=== PATIENT | female | born 1965 | race Caucasian/White ===

== ENCOUNTER 2023-11-30 06:10 | Emergency (ER) | payer BC, SELFPAY ==
[2023-11-30 06:16] VITALS: BP 141/84
[2023-11-30 08:02] LABS: % Basophils 0.6 % (0-2); % Eosinophils 1.7 % (0-6); % Immature Granulocytes 0.2 % (0-0.5); % Lymphocytes 27.5 % (20.5-51.1); % Monocytes 6.1 % (1.7-9.3); % Neutrophils 63.9 % (42.2-75.2); Absolute Basophils 0.1 10^3/uL (0-0.2); Absolute Eosinophils 0.2 10^3/uL (0-0.7); Absolute Lymphocytes 2.6 10^3/uL (1.2-3.4); Absolute Monocytes 0.6 10^3/uL (0.1-0.6); Absolute Neutrophils 5.9 10^3/uL (1.4-6.5); Hematocrit 40.5 % (37.0-47.0); Hemoglobin 13.3 g/dL (12.0-16.0); Mean Corp Hgb Conc. 32.8 g/dL (33.0-37.0); Mean Corpuscular Hgb 29.1 pg (27.0-31.0); Mean Corpuscular Volume 88.6 fL (81.0-99.0); Mean Platelet Volume 9.6 fL (7.4-10.4); Nucleated Red Blood Cells % 0 %; Platelet Count 264 10^3/uL (130-400); Red Blood Cell Count 4.57 10^6/uL (4.20-5.40); White Blood Cell Count 9.3 10^3/uL (4.8-10.8)
[2023-11-30 08:10] LABS: ALT (SGPT) 26 U/L (0-35); AST (SGOT) 25 U/L (14-36); Albumin 4.9 g/dl (3.5-5.0); Alkaline Phosphatase 100 U/L (38-126); Blood Urea Nitrogen 19 mg/dl (7-17); Calcium 10.5 mg/dl (8.4-10.2); Carbon Dioxide 26 mmol/L (22-30); Chloride 103 mmol/L (98-107); Glucose 89 mg/dl (70-99); Potassium 4.5 mmol/L (3.5-5.1); Sodium 139 mmol/L (135-145); Total Bilirubin 0.5 mg/dl (0.2-1.3); eGFR > 60.00
[2023-11-30 08:21] VITALS: BP 135/89
[2023-11-30 08:21] LABS: Troponin I < 0.012 ng/ml
--- NOTE | 2023-11-30 08:22 | ED.GENMED ---
History of Present Illness
General
Chief Complaint: Chest Pain
Source: patient
Exam Limitations: none
Time Seen by Provider: 11/30/23 08:10
Nursing documentation reviewed up to this point in time: agreed with
Travel History
Have you had any contact with someone who has COVID-19?: No
Do you have any symptoms of coronavirus? Fever > 100 degrees, chills, cough, shortness of breath, sore throat, loss of taste or smell, muscle aches, or headache?: No
History of Present Illness
History of Present Illness:
Patient is a 58 yr old female with past medical history of hypertension, not on insulin diabetes, high cholesterol, pericarditis presents to the ER for evaluation. Patient started with pain to left back radiating to chest and left arm. She
reports she woke up around 4:20 AM and while getting dressed for work she noticed the symptoms. She denies any associated shortness of breath nausea vomiting diaphoresis. Here in the ER she does feel the pain is slightly increased when she lays
back and she does feel slight pain when she takes deep breath.
she denies any recent injury. She denies any lower extremity swelling. She takes pain medication for her hip and did take pain medication today which did seem to improve symptoms. She also tried Maalox.
She is followed by Dr. Jacobs here at [place] for pericarditis. She reports she had a normal echo in April.
Past History
Past History
ED Past Medical History: HTN, Hypercholesterolemia and NIDDM
ED Past Surgical History: Cholecystectomy
Social History
Tobacco: Former smoker
Alcohol: Occasional
Personal:
Living: with family
Review of Systems
Review of Systems
Allergies reviewed?: Yes
All Other Systems: ROS reviewed and negative except as documented in HPI and ROS
Constitutional: Reports no symptoms; Denies fever, fatigue or chills
Respiratory: Reports other (denies SOB , slight increased pain with deep breath)
Cardiac: Reports chest pain; Denies diaphoresis, palpitations or syncope
ABD/GI: Reports no symptoms
Musculoskeletal: Reports no symptoms
Phy Exam
General Physical Exam
General Presentation: no apparent distress
General age: appears stated age
General Skin: warm and dry
General Hydration: appears well hydrated
Cardiovascular Exam
Cardiovascular Exam: regular rate/rhythm, no murmur and normal peripheral pulses
Pulmonary Exam
Pulmonary Exam: lungs clear and no respiratory distress
Neurological Exam
Neurological Exam: alert and oriented x3
Musculoskeletal Exam
Musculoskeletal Exam: full ROM
Skin Exam
Skin Exam: normal color and warm/dry
Psychiatric Exam
Psychiatric Exam: normal mood/affect
Scores
Heart Score for Chest Pain Patients
STEMI patient?: Not applicable
Course
Orders/Labs/Results
Orders:
Orders
11/30/23 06:12
Electrocardiogram (*1) Urgent
Reason for Study: Chest Pain
Cardiac Monitoring- Treatment ONCE
EKG- Treatment ONCE
IV Insert/Care/Rem.- Treatment PRN
O2 Therapy [RESP] Urgent
Titrate/Wean O2 to maintain O2 sat greater than (%): 90
Special Instructions: Maintain sats >/=90%
Pulse Ox/spot Check [RESP] Urgent
Quantity: 1
Special Instructions: ON ROOM AIR
11/30/23 07:36
Complete Blood Count/With Diff Urgent
Comprehensive Metabolic Panel Urgent
Troponin I Urgent
11/30/23 08:36
DDimer [D-Dimer] Urgent
11/30/23 08:51
Ketorolac [Toradol] 15 mg IV NOW STA
11/30/23 09:12
Chest [CR Chest - 2 Views ] Urgent
Comment:
Reason For Exam: chest pain
11/30/23 10:14
Troponin I Urgent
11/30/23 11:00
Electrocardiogram (*1) Stat
Reason for Study: Other
Other Reason for Exam: chest pain
EKG- Treatment ONCE
Abnormal Lab Results
11/30/23
07:36
MCHC 32.8 L g/dL
(33.0-37.0)
BUN 19 H mg/dl
(7-17)
Calcium 10.5 H mg/dl
(8.4-10.2)
11/30/23 07:36
11/30/23 07:36
Vital Signs
Initial and Last Documented VS:
Initial Vital Signs
Temp Pulse Resp BP Pulse Ox
97.8 F 82 17 141/84 97
11/30/23 06:16 11/30/23 06:16 11/30/23 06:16 11/30/23 06:16 11/30/23 06:16
Last Documented Vital Signs
Temp Pulse Resp BP Pulse Ox
97.8 F 83 17 135/82 94
11/30/23 06:16 11/30/23 10:30 11/30/23 10:30 11/30/23 10:02 11/30/23 10:30
Estimator Paperboard Boxes consulted with Physician
Estimator Paperboard Boxes consulted with physician?: Yes
Name of Physician Consulted: walker
MDM/Problems Addressed
Differential Diagnosis Includes:
Not limited to unstable angina PE less likely
,
MDM/Problems Addressed:
Patient is a 58-year-old female past medical history of hypertension reflux [id number] diabetes pericarditis who presents to the ER for evaluation of left-sided back pain which radiates to her chest and arm around 430 this morning. She
noticed this while wakening. She denies any exact injury but after arriving here to the ER she reports pain seems to be worse with movement laying back and simply moving changing positions. Sh is followed by cardiology Dr. Jacobs. I reviewed
her echo from 10/2020: Which shows normal LV wall size and systolic function no regional wall abnormalities left ventricular ejection fraction 55 to 60% normal diastolic function normal pericardium with trivial effusion. She presents awake alert
no acute distress lungs are clear heart rate normal heart rate 80 normal sinus rhythm no murmurs no fevers normal white count.
Patient is well-appearing nontachycardic nonhypoxic in no acute distress given IV Toradol with some relief of symptoms. She is afebrile here with a normal white count 2 negative cardiac troponins and negative D-dimer and no acute findings on chest
x-ray possible muscular. Patient stable for discharge home with outpatient follow up . Will place on hotline
*Radiology
Radiology exam reviewed: radiology read reviewed
*Pulse Oximetry
Patient hypoxic: yes
*EKG
Interpreted by ED Provider?: Yes
Interpretation: normal
Heart Rate: 80
Rate: normal
Rhythm: sinus
Ischemia: other (Repeat EKG also with a heart rate of 80 unchanged at 11:03 am )
*Critical Care Note
Total Time (30-74mins, 75-104mins- exclusive of procedures): Not Applicable
Data Reviewed
Review of Other/Old Records Reveals: Other ( echo reviewed from 2020 )
Source: patient
ED Attending Note
-
Portions of this chart may have been created with voice recognition software.� Occasional wrong word or��sound alike� substitutions may have occurred due to the inherent limitations of voice recognition software.
Discharge Plan
Departure
Patient Disposition: Home (Routine Discharge)
Date of Disposition: 11/30/23
Time of Disposition: 11:01
Patient with high blood pressure during this ER visit?: Yes
Covid-19: Not Applicable
Discharge Problem:
Chest pain
Instructions: Chest Pain CBC Follow Up, BLOOD PRESSURE
Prescriptions:
No Action
atorvastatin 40 MG tablet
40 mg PO DAILY
amlodipine 5 MG tablet
5 mg PO DAILY
Patient Comments:
just restarted today 06/16/16
pantoprazole [Protonix] 20 MG tablet,delayed release (DR/EC)
20 mg PO DAILY
ibuprofen 600 MG tablet
600 mg PO Q6HPRN PRN (Reason: pain)
diltiazem HCl 180 MG capsule,extended release 24hr
180 mg PO DAILY Qty: 90 0RF
rosuvastatin [Crestor] 10 mg Tablet
15 mg PO DAILY
Mounjaro 10 mg/0.5 mL Pen Injector
10 mg SC QWEEK
naproxen 500 MG tablet
500 mg PO TID PRN (Reason: pain)
Referrals:
Kenn Jacobs MD [Active] -
Misty Santos MD [Family Provider] -
Activity Restrictions/Additional Instructions:
Follow-up with cardiology as discussed you are placed on the hotline which means you should receive a call from the office in the next 1 days have you do not please give them a call to schedule an appointment return if any worsening of symptoms.
Interventions
Interventions:
*Risk Screen - Suicide Last Done: 11/30/23 06:16
*General Assessment Last Done: 11/30/23 06:16
*Neglect/Abuse Screening Last Done: 11/30/23 06:16
ED- Fall Risk Assessment Last Done: 11/30/23 09:26
*ED COVID-19 Vaccine History Last Done: 11/30/23 06:16
ED- Cardiac Assessment Last Done: 11/30/23 09:26
Discharge Date and Time
Print Language: GEORGIAN
[2023-11-30 08:56] LABS: D-Dimer 0.38 ug/mlFEU (0.00-0.50)
[2023-11-30] MEDS: TORADOL 15 MG IV (09:08)
[2023-11-30 09:25] VITALS: BP 128/87
[2023-11-30 10:02] VITALS: BP 135/82
[2023-11-30 10:48] LABS: Troponin I < 0.012 ng/ml
[2023-11-30 11:00] VITALS: BP 126/87
== END 2023-11-30 11:24 | disposition home or self-care (01) ==
LOC: EMR 06:10
PROVIDERS: Nurse Practitioner; EMERGENCY PHYSICIAN Emergency Medicine; FAMILY PHYSICIAN Family Medicine
DX: R07.9 Chest pain, unspecified (principal); M79.602 Pain in left arm; I10 Essential (primary) hypertension; E11.9 Type 2 diabetes mellitus without complications; Z87.891 Personal history of nicotine dependence
CPT/HCPCS: 99285; 96374; 71046; 80053; 84484; 85025; 85379; 93005

== ENCOUNTER → 2024-03-23 14:24 | Outpatient (REF) | payer BC, SELFPAY | LOC: RAD 14:24 | PROVIDERS: ATTENDING PHYSICIAN Nurse Practitioner Family; FAMILY PHYSICIAN Family Medicine | DX: Z91.81 History of falling (principal); R07.81 Pleurodynia | CPT/HCPCS: 71101 ==

== ENCOUNTER → 2024-06-06 06:16 | Day surgery (SDC) | payer BC, SELFPAY | LOC: GI 06:16 | PROVIDERS: ATTENDING PHYSICIAN Surgery | DX: Z12.11 Encounter for screening for malignant neoplasm of colon (principal); D12.0 Benign neoplasm of cecum; D12.3 Benign neoplasm of transverse colon; K57.30 Diverticulosis of large intestine without perforation or abscess without bleeding; K64.9 Unspecified hemorrhoids; Z86.0100 Personal history of colon polyps, unspecified | CPT/HCPCS: 45380; 88305 ==

== ENCOUNTER → 2024-07-09 12:15 | Outpatient (REF) | payer BC, SELFPAY | LOC: HWRAD 12:15 | PROVIDERS: ATTENDING PHYSICIAN Internal Medicine Critical Care Medicine; FAMILY PHYSICIAN Family Medicine | DX: Z87.891 Personal history of nicotine dependence (principal) | CPT/HCPCS: 71271 ==

== ENCOUNTER → 2024-08-09 15:10 | Outpatient (REF) | payer BC, SELFPAY | LOC: HWWDC 15:10 | PROVIDERS: ATTENDING PHYSICIAN Obstetrics & Gynecology; FAMILY PHYSICIAN Family Medicine | DX: Z12.31 Encounter for screening mammogram for malignant neoplasm of breast (principal) | CPT/HCPCS: 77063; 77067 ==

== ENCOUNTER → 2024-08-17 10:04 | Outpatient (REF) | payer BC, SELFPAY | LOC: HWRCS 10:04 | PROVIDERS: ATTENDING PHYSICIAN Internal Medicine Critical Care Medicine; FAMILY PHYSICIAN Family Medicine | DX: I31.39 Other pericardial effusion (noninflammatory) (principal) | CPT/HCPCS: 93306 ==